=== PATIENT | male | born 1995 | race African-American/Black ===

== ENCOUNTER 2017-11-23 12:54 | Emergency (ER) | payer BC | END 2017-11-23 13:42 | disposition home or self-care (01) | LOC: ER 12:54 | DX: S31.21XA Laceration without foreign body of penis, initial encounter (principal); W22.8XXA Striking against or struck by other objects, initial encounter; Y93.89 Activity, other specified; Y99.8 Other external cause status; Y92.89 Other specified places as the place of occurrence of the external cause | CPT/HCPCS: 99281 ==